=== PATIENT | male | born 1955 | race Caucasian/White ===

== ENCOUNTER → 2019-02-25 | Outpatient (CLI) | payer OTHER, MEDICARE ==
[2019-02-23 09:03] VITALS: BP 151/50
[~2019-02-25] MED LIST: ALBU2.5V8 INH; AMIO200T4 PO; APIX5TAB PO; ASPI-630 PO; ASPI325T8 PO; ATOR20TA PO; DILT240C2 PO; GADOTERATE 7.5 MMOL/15ML VIAL. IVP ONE; GLYB2.5T2 PO; HYDR-2761 PO; LEVO750T31 PO; LINE600T PO; LISI-334 PO; METF10007 PO; METF500T9 PO; PIOG15TA63 PO
--- NOTE | 2019-02-25 10:07 | RAD ---
MRI Brain with and without contrast History: Lung cancer, no head symptoms Technique: Multiplanar, multi sequential pre and postcontrast MR imaging was performed of the brain. Comparison: None Findings: There is no evidence of recent infarct or cytotoxic edema. The ventricles, sulci, and cisterns are within normal limits in size and configuration. There is no significant midline shift, intraaxial mass effect, or focal abnormal extra-axial fluid collection. There is a small focus of encephalomalacia and gliosis with cortical involvement of the posterior right parietal lobe. There is also tiny focus of encephalomalacia and gliosis of the right frontal cortical surface. There is mild T2 and FLAIR hyperintense signal abnormality of the letty, also tiny focus of the left frontal deep white matter. There is a tiny focus of old microhemorrhage/hemosiderin deposition of the posterior left upper lobe. There is no nodular parenchymal or leptomeningeal enhancement. There is abnormal signal of the right internal carotid artery at the skull base, loss of flow-void. The cerebellar tonsils are normal in location. There is no significant abnormality of the pineal gland or pituitary gland. There is negligible patchy ethmoid air cell mucosal thickening. There is some signal change of the right petrous apex probably component of inspissated fluid. The mastoid air cells are aerated. There is preserved marrow signal of the clivus. Impression: 1. There is abnormal signal in the right internal carotid artery at the skull base, presumably occluded. This is likely chronic given lack of recent infarct and no significant symptoms. 2. There is no abnormal intracranial enhancement. 3. 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 T2 and FLAIR hyperintense signal abnormality greatest of the letty is nonspecific, probably related to chronic microvascular ischemic disease. Electronically signed by: Antoine Gan MD (02/25/2019 10:04 AM) [id number]
== END | disposition home or self-care (01) ==
LOC: MRI 08:31
PROVIDERS: ATTEND Internal Medicine Hematology & Oncology
DX: G93.89 Other specified disorders of brain (principal); I63.89 Other cerebral infarction; R90.82 White matter disease, unspecified; Z85.118 Personal history of other malignant neoplasm of bronchus and lung
CPT/HCPCS: 70553; A9575

== ENCOUNTER → 2019-02-26 | Outpatient (CLI) | payer OTHER, MEDICARE ==
[2019-02-23 09:03] VITALS: BP 151/50
[~2019-02-26] MED LIST changes: -GADOTERATE 7.5 MMOL/15ML VIAL. IVP ONE
--- NOTE | 2019-02-26 16:02 | RAD ---
FDG tumor localization scan, PET/CT, 02/26/2019: HISTORY: Staging lung cancer Following IV injection of 17.7 mCi of 18 F-FDG, imaging was performed from the skull base to the proximal thighs. The noncontrast CT component was performed for attenuation correction and anatomic localization purposes rather than for primary diagnosis. The patient's blood glucose level the time of injection was 83 MG/DL. There is a large hypermetabolic mass centered at the left hilum extending primarily into the lower lobe. There is direct extension into the mediastinum at the subcarinal level. This hypermetabolic component measures at least 12 cm in width. There are additional areas of dense consolidation adjacent to the hypermetabolic component in the left chest. There is separate hypermetabolic adenopathy in the upper mediastinum and right supraclavicular region. There is a moderate volume of left-sided pleural fluid. There are hypermetabolic foci in the liver, largest of which lies inferior laterally in the right lower lobe and measures approximately 3 cm. There are hypermetabolic retrocrural, celiac region and portacaval lymph nodes in the upper abdomen compatible with metastatic disease. Normal GI tract and urinary tract activity is present in the abdomen and pelvis. There are numerous hypermetabolic foci in the bones including the spine, sternum, scapulae, ribs, pelvis and both proximal femurs. The pattern is typical of metastatic disease. There is a 2 cm hypermetabolic subcutaneous nodule along the anterior aspect of the sternum. IMPRESSION: 1. Large hypermetabolic left lung mass compatible with a primary lung malignancy with direct invasion of the mediastinum. 2. Mediastinal, right supraclavicular and upper abdominal adenopathy on a metastatic basis. 3. Hypermetabolic liver lesions compatible with metastatic disease. 4. Numerous hypermetabolic bony metastases.
== END | disposition home or self-care (01) ==
LOC: PETSC 11:00
PROVIDERS: ATTEND Internal Medicine Hematology & Oncology
DX: C34.92 Malignant neoplasm of unspecified part of left bronchus or lung (principal); C78.1 Secondary malignant neoplasm of mediastinum; C79.89 Secondary malignant neoplasm of other specified sites; C79.51 Secondary malignant neoplasm of bone; K76.89 Other specified diseases of liver
CPT/HCPCS: 78815; A9552

== ENCOUNTER → 2019-04-13 | Outpatient (CLI) | payer OTHER, MEDICARE ==
[2019-02-23 09:03] VITALS: BP 151/50
[~2019-04-13] MED LIST changes: +ALLO100T PO; +CARBOPLATIN; +ETOP50CA IV; +ONDA8TAB9 PO; +[UNRECOGNIZED DRUG - CODE] IV; +[UNRECOGNIZED DRUG - CODE] IV
--- NOTE | 2019-04-13 14:17 | RAD ---
Bilateral lower extremity venous doppler ultrasound Indication: Progressive lower extremity edema left greater than right. . Technique: Color Doppler, grayscale, and spectral waveform analysis is used to evaluate the right and left lower extremity deep venous system, including the common femoral vein, superficial femoral vein, popliteal vein, and visualized calf veins. Right leg: No evidence of deep venous thrombosis. Normal response to augmentation, normal compressibility and normal phasicity is demonstrated. Visualized calf veins are patent. Left leg: No evidence of deep venous thrombosis. Normal response to augmentation, normal compressibility and normal phasicity is demonstrated. Visualized calf veins are patent. Impression: Negative for deep venous thrombosis Electronically signed by: Jorge Barnett MD (04/13/2019 2:14 PM) [id number]
== END | disposition home or self-care (01) ==
LOC: US 13:13
PROVIDERS: ATTEND Radiology Radiation Oncology
DX: R60.0 Localized edema (principal)
CPT/HCPCS: 93970

== ENCOUNTER → 2019-04-21 | Outpatient (CLI) | payer OTHER, MEDICARE ==
[~2019-04-21] VITALS: Ht 188 cm; Wt 87.1 kg
[~2019-04-21] MED LIST changes: +ACETAMINOPHEN 325 MG TABLET. PO PRN; +HEPARIN PF 500 UNIT/5 ML DISP.SYRIN. IV ONE; -LINE600T PO; +LINE600T37 PO; +METF500T11 PO; -METF500T9 PO; +diphenhydrAMINE HCL 25 MG CAPSULE PO PRN
[2019-04-21 07:41] VITALS: BP 105/53
[2019-04-21 08:06] LABS: HEMATOCRIT 18.1 % (39.0-53.0)
[2019-04-21 09:50] VITALS: BP 104/52
[2019-04-21 10:55] VITALS: BP 107/53
[2019-04-21 11:28] VITALS: BP 111/54
[2019-04-24 08:08] VITALS: BP 110/55
[2019-04-24 08:34] LABS: HEMATOCRIT 20.5 % (39.0-53.0); HEMOGLOBIN 6.8 g/dL (13.0-17.5)
[2019-04-24 09:35] VITALS: BP 112/58
[2019-04-24 10:35] VITALS: BP 114/59
[2019-04-24 11:21] VITALS: BP 117/57
== END | disposition home or self-care (01) ==
LOC: OPS 07:06
PROVIDERS: ATTEND Internal Medicine Hematology & Oncology
DX: D64.9 Anemia, unspecified (principal); C34.90 Malignant neoplasm of unspecified part of unspecified bronchus or lung; F41.9 Anxiety disorder, unspecified; J44.9 Chronic obstructive pulmonary disease, unspecified; I10 Essential (primary) hypertension; E78.5 Hyperlipidemia, unspecified; E11.42 Type 2 diabetes mellitus with diabetic polyneuropathy; E11.51 Type 2 diabetes mellitus with diabetic peripheral angiopathy without gangrene; I48.91 Unspecified atrial fibrillation; M19.90 Unspecified osteoarthritis, unspecified site; Z79.01 Long term (current) use of anticoagulants; Z79.82 Long term (current) use of aspirin; Z87.891 Personal history of nicotine dependence; Z90.49 Acquired absence of other specified parts of digestive tract; I25.10 Atherosclerotic heart disease of native coronary artery without angina pectoris
CPT/HCPCS: 36415; 36430; 85014; 85018; 86850; 86900; 86901; 86920; P9016; Q0163

== ENCOUNTER → 2019-04-24 | Outpatient (CLI) | payer OTHER, MEDICARE ==
[2019-04-21 11:28] VITALS: BP 111/54
[~2019-04-24] MED LIST changes: +ACETAMINOPHEN 325 MG TABLET. PO ONE; -ACETAMINOPHEN 325 MG TABLET. PO PRN; -HEPARIN PF 500 UNIT/5 ML DISP.SYRIN. IV ONE; +diphenhydrAMINE HCL 25 MG CAPSULE PO ONE; -diphenhydrAMINE HCL 25 MG CAPSULE PO PRN
== END | disposition home or self-care (01) ==
LOC: OPS 07:26
PROVIDERS: ATTEND Internal Medicine Hematology & Oncology
DX: D64.9 Anemia, unspecified (principal); C34.90 Malignant neoplasm of unspecified part of unspecified bronchus or lung; I25.10 Atherosclerotic heart disease of native coronary artery without angina pectoris; I48.91 Unspecified atrial fibrillation; F41.9 Anxiety disorder, unspecified; J44.9 Chronic obstructive pulmonary disease, unspecified; I10 Essential (primary) hypertension; E78.5 Hyperlipidemia, unspecified; E11.42 Type 2 diabetes mellitus with diabetic polyneuropathy; E11.51 Type 2 diabetes mellitus with diabetic peripheral angiopathy without gangrene; M19.90 Unspecified osteoarthritis, unspecified site; Z90.49 Acquired absence of other specified parts of digestive tract; Z79.82 Long term (current) use of aspirin; Z87.891 Personal history of nicotine dependence; Z79.01 Long term (current) use of anticoagulants
CPT/HCPCS: 36430; P9016; Q0163

== ENCOUNTER → 2019-05-01 | Outpatient (CLI) | payer OTHER, MEDICARE ==
[2019-04-21 11:28] VITALS: BP 111/54
[~2019-05-01] MED LIST changes: -ACETAMINOPHEN 325 MG TABLET. PO ONE; +IOHEXOL 240 MG/ML 50ML VIAL. PO ONE; +IOHEXOL 300 MG/ML 100ML VIAL. IV ONE; +LINE600T PO; -LINE600T37 PO; -METF500T11 PO; +METF500T9 PO; -diphenhydrAMINE HCL 25 MG CAPSULE PO ONE
--- NOTE | 2019-05-01 11:59 | RAD ---
PQRS Compliance statement: One or more of the following individualized dose reduction techniques were utilized for this examination: 1. Automated exposure control. 2. Adjustment of the mA and/or kV according to patient size. 3. Use of iterative reconstruction technique. Indication: Lung cancer. HCC. Restaging scan. TECHNIQUE: CT chest, abdomen and pelvis with IV contrast with multiplanar reformats. COMPARISON: CT from 02/17/2019 and PET/CT from 02/26/2019. FINDINGS: Heart is normal in size. No pericardial effusion. Large left pleural effusion is seen with atelectasis of the left lung. Emphysema in the right lung. Interstitial opacities are seen in the right lung base. Right chest wall Chemo-Port is seen with its tip in the SVC. Coronary artery calcifications noted. No enlarged axillary lymph nodes. Shotty mediastinal lymph nodes are seen, nonspecific. No apparent hilar adenopathy. Interval decrease in the size of subcarinal lymph node measuring 2.7 x 1.8 cm, previously 4.0 x 3.3 cm. Mild diffuse atherosclerotic plaque in the thoracic aorta. No suspicious bony lesion. Nondisplaced fracture is seen of the left posterior 11th rib. Low attenuating lesion is seen in segment 6 of the liver measuring 1.7 x 1.2 cm, previously 2.5 x 2.5 cm. No new liver lesion. Spleen, pancreas, adrenals within normal limits. Likely partial nephrectomy changes in the right kidney. 1 cm nonobstructing calcified stone in the left kidney. No hydronephrosis. No enlarged retroperitoneal or pelvic adenopathy. No free pelvic fluid or ascites. Bilateral aortoiliac grafts noted. Prostate is nonenlarged. No bowel obstruction. Urinary bladder demonstrates no radiopaque stones. No suspicious bony lesion. IMPRESSION: 1. Large left pleural effusion with atelectasis of the left lung not significantly changed compared to PET/CT. 2. Interval improvement in previously seen mediastinal adenopathy, currently only mildly enlarged subcarinal lymph node remains 4. Left posterior 11th rib fracture. Clinically correlate with focal tenderness. 3. Interval decrease in the size of segment 6 liver lesion. 5. Left nephrolithiasis. Electronically signed by: Wiley Powell DO (05/01/2019 11:56 AM) [facility]
== END | disposition home or self-care (01) ==
LOC: CT 08:54
PROVIDERS: ATTEND Internal Medicine Hematology & Oncology
DX: S22.32XA Fracture of one rib, left side, initial encounter for closed fracture (principal); C34.32 Malignant neoplasm of lower lobe, left bronchus or lung; J43.9 Emphysema, unspecified; J90 Pleural effusion, not elsewhere classified; J98.11 Atelectasis; I25.10 Atherosclerotic heart disease of native coronary artery without angina pectoris; I70.0 Atherosclerosis of aorta; N20.0 Calculus of kidney; R59.0 Localized enlarged lymph nodes; X58.XXXA Exposure to other specified factors, initial encounter; Y93.89 Activity, other specified; Y92.89 Other specified places as the place of occurrence of the external cause; Y99.8 Other external cause status; K76.9 Liver disease, unspecified
CPT/HCPCS: 71260; 74177; Q9966; Q9967